=== PATIENT | female | born 1985 | race Caucasian/White ===

== ENCOUNTER 2017-03-06 06:31 | Day surgery (SDC) | payer BC ==
[~2017-03-06 06:31] MED LIST: Lactated Ringers 1,000 ML IV SCH; Lidocaine 1%/Sod Bicarbonate in NS 8.4% 1 ML Syringe IV PRN; Sodium Chloride 0.9% 10 ML Syringe FLUSH PRN
--- NOTE | 2017-03-06 06:56 | PCM.PREANE ---
Preanesthetic Assessment - Anesthesia/Transfusion/Family Hx Anesthesia History: No Prior Anesthesia Family History of Anesthesia Reaction: No Transfusion History: No Prior Transfusion(s) Intubation History: Unknown - Review of Systems General: No Symptoms Pulmonary: No Symptoms (snoring noted when asleep) Cardiovascular: No Symptoms Gastrointestinal: No Symptoms, Nausea (with nerves and empty stomach) Neurological: No Symptoms (Vertigo and motion sickness) Other: Reports: Thyroid Problems (on an over the counter thyroid supplement due to lab values for the doctor being right below normal range, therefore wilfrido decided to take a suupplement) - Physical Assessment NPO Status Date: 03/05/17 NPO Status Time: 23:45 Pulse: 72 O2 Sat by Pulse Oximetry: 99 Respiratory Rate: 16 Blood Pressure: 142/89 Temperature: 36.8 C Height: 1.68 m Weight: 140.81 kg ASA Class: 2 Mental Status: Alert & Oriented x3 Airway Class: Mallampati = 2 Dentition: Reports: Normal Dentition, Caries Thyro-Mental Finger Breadths: 3 Mouth Opening Finger Breadths: 3 ROM/Head Extension: Full Lungs: Clear to Auscultation, Normal Respiratory Effort Cardiovascular: Regular Rate, Regular Rhythm, No Murmurs - Allergies Allergies/Adverse Reactions: Allergies Allergy/AdvReac Type Severity Reaction Status Date / Time Penicillins Allergy Cannot Verified 03/05/17 13:14 Remember - Anesthesia Plan Pre-Op Medication Ordered: None - Acknowledgements Anesthesia Type Planned: General Anesthesia Pt an Appropriate Candidate for the Planned Anesthesia: Yes Alternatives and Risks of Anesthesia Discussed w Pt/Guardian: Yes Pt/Guardian Understands and Agrees with Anesthesia Plan: Yes PreAnesthesia Questionnaire - Past Health History Medical/Surgical History: Denies Medical/Surgical History [employer] History: Reports: Spontaneous - SUBSTANCE USE Smoking Status *Q: Never Smoker Recreational Drug Use History: No - HOME MEDS Home Medications: Home Meds Fluticasone Propionate [Flonase] 1 spray NASBOTH DAILY PRN 03/05/17 [History] - CURRENT (IN HOUSE) MEDS Current Meds: Current Medications Lactated Ringer's (Ringers, Lactated) 1,000 mls @ 125 mls/hr IV ASDIRECTED BETTYE Stop: 03/06/17 23:00 Lidocaine/Sodium Bicarbonate (Buffered Lidocaine 1% In Ns 8.4%) 0.25 ml IV ONETIME PRN PRN Reason: Prior to IV Start Stop: 03/06/17 18:00 Sodium Chloride (Saline Flush) 10 ml FLUSH ASDIRECTED PRN PRN Reason: Keep Vein Open Stop: 03/06/17 18:00
[2017-03-06] MEDS ORDERED: Lidocaine 1% 30 ML SDV ONE (07:03)
--- NOTE | 2017-03-06 07:15 | PCM.OPNOTE ---
- General Post-Op/Procedure Note Date of Surgery/Procedure: 03/06/17 Operative Procedure(s): Hysteroscopy, polypectomy, D&C Findings: Hysteroscopic evaluation showed a moderat sized, 1-2 cm, broad based polyp on the anterior wall of the uterus Pre Op Diagnosis: Thickened endometrial lining - possible polyp on TVUS Post-Op Diagnosis: Same, broad based polyp on anterior uterine wall Anesthesia Technique: General ET Tube Primary Surgeon: Dona Wood Anesthesia Provider: Jillian Champion Pathology: Polyp and D&C specimen sent to pathology for further evaluation Fluid Replacement, Intraop: 900 Output, Urine Amount: 50 EBL in mLs: 15 Complications: None Condition: Good Free Text/Narrative:: The risks, benefits, indications, potential complications, and alternatives were explained to the patient and informed consent obtained. Patient was brought to the OR where general anesthesia was induced without difficulty. She was then placed in the dorsal lithotomy position. She was then prepped and draped in the typical fashion. Sterile speculum placed in the vagina. Tenaculum placed on the anterior lip of the cervix. The cervix was then sequentially dilated to a #17 edmonds dilator to accommodate a 5-mm hysteroscope. A 5-mm hysteroscope was then introduced under direct visualization and the uterus was distended. Findings as above. A hysteroscopic grasper was inserted through the hysteroscopic to confirm broad polyp was not infact a fibroid. Tissue noted to be soft and easily distrupted at base consistent with a broad base polyp. The hysteroscope was then withdrawn and a jsoh stones was inserted into the uterine cavity. After several attempts the polyp was able to be grasped and extracted. Repeat hysteroscopy performed and demonstrated removal of polyp. Next sharp curettage performed ensuring gritty texture throughout. Specimen sent to pathology for further evaluation. The tenaculum was then removed and hemostasis obtained with application of silver nitrate. Fluid Deficit: 200 cc
[2017-03-06] MEDS ORDERED: Dexamethasone 4 MG/ML 5 ML MDV ONE (07:31)
[2017-03-06] MEDS ORDERED: Ketorolac 30 MG/ML SDV ONE (07:31)
[2017-03-06] MEDS ORDERED: fentaNYL 100 MCG/2 ML SDV ONE (07:31)
[2017-03-06] MEDS ORDERED: Midazolam 1 MG/ML 2 ML SDV ONE (07:31)
[2017-03-06] MEDS ORDERED: Propofol 200 MG/20 ML SDV ONE (07:31)
[2017-03-06] MEDS ORDERED: Lidocaine 1% 4 ML ONE (07:31)
[2017-03-06] MEDS ORDERED: Succinylcholine/Normal Saline 100 MG/5 ML Syringe ONE (07:31)
[2017-03-06] MEDS ORDERED: Ondansetron 4 MG/2 ML SDV ONE (07:31)
[2017-03-06] MEDS ORDERED: Lactated Ringers 1,000 ML ONE (07:31)
[2017-03-06] MEDS ORDERED: Ondansetron 4 MG/2 ML SDV IVPUSH PRN (08:20)
[2017-03-06] MEDS ORDERED: Metoclopramide 10 MG/2 ML SDV IV PRN (08:20)
[2017-03-06] MEDS ORDERED: fentaNYL 100 MCG/2 ML SDV IVPUSH PRN (08:20)
[2017-03-06] MEDS ORDERED: HYDROmorphone 0.5 MG/0.5 ML Syringe IVPUSH PRN (08:20)
[2017-03-06] MEDS ORDERED: diphenhydrAMINE 50 MG/ML SDV IVPUSH PRN (08:20)
[2017-03-06] MEDS ORDERED: Labetalol 100 MG/20 ML MDV ONE (08:23)
--- NOTE | 2017-03-06 09:05 | PCM.POSTAN ---
POST ANESTHESIA ASSESSMENT - MENTAL STATUS Mental Status: Alert - VITAL SIGNS Pulse Rate: 76 SaO2: 96 Resp Rate: 20 Blood Pressure: 157/98 Temperature: 36.8 C - RESPIRATORY Respiratory Status: Respiratory Rate WNL, Airway Patent, O2 Saturation Stable - CARDIOVASCULAR CV Status: Pulse Rate WNL, Blood Pressure Stable - GASTROINTESTINAL GI Status: No Symptoms - POST OP HYDRATION Hydration Status: Adequate & Stable
--- NOTE | 2017-03-06 11:06 | PCM48HPAN ---
Post Anesthesia Note - EVALUATION WITHIN 48HRS OF ANESTHETIC Vital Signs in Normal Range: Yes Patient Participated in Evaluation: Yes Respiratory Function Stable: Yes Airway Patent: Yes Cardiovascular Function Stable: Yes Hydration Status Stable: Yes Pain Control Satisfactory: Yes Nausea and Vomiting Control Satisfactory: Yes Mental Status Recovered: Yes
== END 2017-03-06 11:15 | disposition home or self-care (01) ==
LOC: JD.SDS 06:31
PROVIDERS: ATTEND Obstetrics & Gynecology
DX: N84.0 Polyp of corpus uteri (principal); E66.9 Obesity, unspecified; Z68.43 Body mass index [BMI] 50.0-59.9, adult; Z88.0 Allergy status to penicillin; Z79.899 Other long term (current) drug therapy
CPT/HCPCS: 36415; 58558; 80048; 81025; 85025; 86850; 86900; 86901; J0330; J1100; J1885; J2250; J2405; J3010; J7120; 00952; J2001; J2704

== ENCOUNTER 2023-09-16 20:55 | Emergency (ER) | payer BC ==
[2023-09-16] MEDS: Sodium Chloride 0.9% 1,000 ML IV ONE (22:26)
[2023-09-16] MEDS: Sodium Chloride 0.9% 10 ML Syringe FLUSH PRN (22:26)
[2023-09-16 22:36] LABS: BASOPHILS ABSOLUTE AUTO 0.1 K/mm3 (0.0-0.2); BASOPHILS PERCENT AUTO 0.6 % (0.0-1.0); EOSINOPHILS ABSOLUTE AUTO 0.1 K/mm3 (0.0-0.4); EOSINOPHILS PERCENT AUTO 0.6 % (0.0-6.0); HEMATOCRIT 48.5 % (37.0-47.0); HEMOGLOBIN 15.9 gm/dl (12.0-16.0); IMMATURE GRAN ABSOLUTE AUTO 0.02 K/mm3 (0.00-0.05); IMMATURE GRAN PERCENT AUTO 0.2 % (0.0-0.4); LYMPHOCYTES ABSOLUTE AUTO 2.1 K/mm3 (1.0-4.8); LYMPHOCYTES PERCENT AUTO 19.2 % (24.0-44.0); MEAN CORPUSCULAR HEMOGLOBIN 26.9 pg (28.0-32.0); MEAN CORPUSCULAR HGB CONC 32.8 g/dl (32.0-36.0); MEAN CORPUSCULAR VOLUME 82.2 fl (83.0-99.0); MEAN PLATELET VOLUME 10.4 fl (9.4-12.3); MONOCYTES ABSOLUTE AUTO 0.7 K/mm3 (0.0-0.8); MONOCYTES PERCENT AUTO 6.3 % (0.0-8.0); NEUTROPHILS ABSOLUTE AUTO 7.8 K/mm3 (1.8-7.7); NEUTROPHILS PERCENT AUTO 73.1 % (41.0-71.0); PLATELET COUNT,PLT 278 K/mm3 (150-400); WHITE BLOOD CELL COUNT,WBC 10.69 K/mm3 (3.9-11.3)
[2023-09-16 22:37] LABS: APPEARANCE,URINE SLT CLOUDY (Clear); BILIRUBIN,URINE 3+ (Negative); COLOR,URINE DARK YELLOW (Yellow); GLUCOSE,URINE NEGATIVE (Negative); KETONES,URINE TRACE (Negative); LEUKOCYTE ESTERASE,URINE NEGATIVE (Negative); NITRITE,URINE NEGATIVE (Negative); OCCULT BLOOD,URINE 2+ (Negative); PROTEIN,URINE 2+ (Negative)
[2023-09-16] MEDS: Ondansetron 4 MG/2 ML SDV IVPUSH ONE (22:57)
[2023-09-16 23:10] LABS: BACTERIA,URINE MODERATE /hpf (FEW); EPITHELIAL CELLS,URINE 30-40 /hpf (0-5); MUCUS,URINE RARE /hpf (FEW); WBC,URINE 0-5 /hpf (0-5)
[2023-09-16 23:11] LABS: A/G RATIO 0.8 (1-2); ALBUMIN 3.8 g/dl (3.4-5.0); ANION GAP 12.1 (5-15); BILIRUBIN TOTAL 6.4 mg/dL (0.2-1.0); BUN/CREATININE RATIO 5.8 (14-18); C-REACTIVE PROTEIN 1.36 mg/dL (<0.30); CALCIUM 9.5 mg/dL (8.5-10.1); EST CRCL DRUG DOSING (CG) 59.51 mL/min; MAGNESIUM 2.3 mg/dL (1.8-2.4); POTASSIUM,K 3.1 mEq/L (3.5-5.1)
[2023-09-16 23:13] LABS: CREATININE 1.2 mg/dL (0.55-1.02); PROTEIN TOTAL,TP 8.8 g/dl (6.4-8.2)
[2023-09-16 23:38] LABS: CORONAVIRUS COVID-19 NAA NEGATIVE (NEGATIVE); INFLUENZA A NAA NEGATIVE (NEGATIVE); RESPIRATORY SYNCYTIAL VIR NAA NEGATIVE (NEGATIVE)
[2023-09-17] MEDS: Iopamidol 612 MG/ML 100 ML Bottle IVPUSH ONE (00:26)
[2023-09-17] MEDS: Ibuprofen 600 MG Tab PO ONE (02:35)
[2023-09-17] MEDS: Promethazine 25 MG Tab PO PRN (03:12)
== END 2023-09-17 03:24 | disposition home or self-care (01) ==
LOC: JD.ED 20:55
DX: K80.20 Calculus of gallbladder without cholecystitis without obstruction (principal); K83.8 Other specified diseases of biliary tract; I10 Essential (primary) hypertension; E66.9 Obesity, unspecified; Z79.899 Other long term (current) drug therapy; Z88.0 Allergy status to penicillin; Z86.16 Personal history of COVID-19; Z68.43 Body mass index [BMI] 50.0-59.9, adult
CPT/HCPCS: 0241U; 36415; 74177; 76705; 80053; 81001; 83690; 83735; 84703; 85025; 86140; 96361; 96374; 99284; A9270; J2405; J3490; J7030; J8597; Q9967

== ENCOUNTER 2023-09-17 21:53 | Emergency (ER) | payer BC ==
[2023-09-17] MEDS: Sodium Chloride 0.9% 1,000 ML IV STA (22:25)
[2023-09-17] MEDS: Ondansetron 4 MG/2 ML SDV IVPUSH ONE (22:25)
[2023-09-17] MEDS: Sodium Chloride 0.9% 10 ML Syringe FLUSH PRN (22:25)
[2023-09-17 22:26] LABS: BASOPHILS ABSOLUTE AUTO 0.1 K/mm3 (0.0-0.2); EOSINOPHILS ABSOLUTE AUTO 0.2 K/mm3 (0.0-0.4); EOSINOPHILS PERCENT AUTO 2.1 % (0.0-6.0); HEMATOCRIT 47.7 % (37.0-47.0); HEMOGLOBIN 15.8 gm/dl (12.0-16.0); IMMATURE GRAN ABSOLUTE AUTO 0.02 K/mm3 (0.00-0.05); IMMATURE GRAN PERCENT AUTO 0.3 % (0.0-0.4); LYMPHOCYTES ABSOLUTE AUTO 1.9 K/mm3 (1.0-4.8); LYMPHOCYTES PERCENT AUTO 24.6 % (24.0-44.0); MEAN CORPUSCULAR HEMOGLOBIN 27.3 pg (28.0-32.0); MEAN CORPUSCULAR HGB CONC 33.1 g/dl (32.0-36.0); MEAN CORPUSCULAR VOLUME 82.5 fl (83.0-99.0); MEAN PLATELET VOLUME 10.7 fl (9.4-12.3); MONOCYTES ABSOLUTE AUTO 0.6 K/mm3 (0.0-0.8); MONOCYTES PERCENT AUTO 7.6 % (0.0-8.0); NEUTROPHILS PERCENT AUTO 64.4 % (41.0-71.0); PLATELET COUNT,PLT 264 K/mm3 (150-400); RED BLOOD CELL COUNT 5.78 M/mm3 (4.10-5.30); WHITE BLOOD CELL COUNT,WBC 7.76 K/mm3 (3.9-11.3)
[2023-09-17] MEDS: Labetalol 100 MG/20 ML MDV IVPUSH ONE (22:38)
[2023-09-17 22:52] LABS: A/G RATIO 0.8 (1-2); ALBUMIN 3.5 g/dl (3.4-5.0); ANION GAP 12.3 (5-15); BILIRUBIN TOTAL 5.9 mg/dL (0.2-1.0); BUN/CREATININE RATIO 7.3 (14-18); C-REACTIVE PROTEIN 0.96 mg/dL (<0.30); CALCIUM 9.4 mg/dL (8.5-10.1); EST CRCL DRUG DOSING (CG) 64.92 mL/min; POTASSIUM,K 3.3 mEq/L (3.5-5.1)
[2023-09-17 23:15] LABS: CREATININE 1.1 mg/dL (0.55-1.02)
== END 2023-09-18 00:24 | disposition home or self-care (01) ==
LOC: JD.ED 21:53
DX: K80.20 Calculus of gallbladder without cholecystitis without obstruction (principal); K83.8 Other specified diseases of biliary tract; E80.6 Other disorders of bilirubin metabolism; R74.01 Elevation of levels of liver transaminase levels; I10 Essential (primary) hypertension; E66.9 Obesity, unspecified; Z86.16 Personal history of COVID-19; Z79.899 Other long term (current) drug therapy; Z88.0 Allergy status to penicillin; Z68.43 Body mass index [BMI] 50.0-59.9, adult
CPT/HCPCS: 36415; 80053; 82977; 83690; 85025; 86140; 96374; 96375; 99284; J1921; J2405; J3490; J7030